=== PATIENT | male | born 1970 | race Caucasian/White ===

== ENCOUNTER 2019-03-03 08:05 | Day surgery (SDC) | payer OTHER ==
[~2019-03-03] VITALS: Ht 180.3 cm; Wt 101.2 kg
[~2019-03-03 08:05] MED LIST: ASPI-630 PO; ATOR10TA PO; BUPIVACAINE MPF 0.5% 30 ML VIAL. ONE; DEXAMETHASONE SOD PHOS 20 MG/5 ML VIAL. ONE; FAMOTIDINE 20 MG/2 ML VIAL ONE; HYDROmorphone 2 MG/ML VIAL IV PRN; IBUP200T44 PO; IV RINGERS,LACTATED 1000ML 1,000 ML IV SCH; LIDOCAINE 1% PF 2 ML VIAL. ID PRN; LIDOCAINE 2% PF 5 ML VIAL. ONE; LISI10TA2 PO; METF10007 PO; MORPHINE SULFATE 2 MG/ML VIAL. IV PRN; ONDANSETRON PF 4 MG/2 ML VIAL. IV PRN; ONDANSETRON PF 4 MG/2 ML VIAL. ONE; PROCHLORPERAZINE 10 MG/2 ML VIAL. IV PRN; PROPOFOL 20 ML IV ONE; ceFAZolin 2GM PREMIX 2 GM/50 ML BAG IV ONE; fentaNYL PF VIAL 100 MCG/2 ML VIAL IV PRN
[2019-03-03] MEDS ORDERED: fentaNYL PF VIAL 100 MCG/2 ML VIAL ONE (08:10)
[2019-03-03] MEDS ORDERED: SEVOFLURANE 16 TO 30 MINUTES. IH ONE (09:51)
[2019-03-03] MEDS ORDERED: KETOROLAC 30 MG/ML INJ FOR OR. INJ ONE (10:24)
[2019-03-03] MEDS ORDERED: HYDR-3165 PO (10:53)
--- NOTE | 2019-03-03 10:55 | DISCH ---
DISCHARGE INSTRUCTIONS Condition on Discharge Condition on Discharge: Stable Activity After Discharge Activity Instructions for Disc: Activity as tolerated (slow advance to activity as symptomatically tolerated) Weight Bearing Status after Di: As tolerated Diet after Discharge Diet after Discharge: Diabetic No Calorie Level Wound Incision Care Wound/Incision Care: Change dressing (remove dressing in 2 days may then shower no soaking until sutures removed) Contacting the after DC Call your doctor for: Concerns you may have Follow-Up Follow up with: Dr. Bess 1 week COTY BESS MD Mar 03, 2019 10:55
[2019-03-03 11:23] VITALS: BP 137/79
[2019-03-03] MEDS ORDERED: HYDROcodone/APAP 7.5/325MG 1 TAB TABLET PO ONE (11:30)
--- NOTE | 2019-03-04 10:27 | PDOC4 ---
Operative Note Operative Note Date of surgery: 03/04/2019 Preoperative diagnosis: Left medial meniscus tear Postoperative diagnosis: Same with displaceable tear posterior horn medial meniscus Operative procedure: Left knee arthroscopy partial medial meniscectomy Surgeon: Shahriar Anesthesia: Gen. Estimated blood loss: 5 mL Competitions: None Operative indications: Please see my preoperative clinic note for detailed operative indications and note that he had a symptomatic medial meniscus tear I had gone over MRI results with him clinical examination was consistent with that we talked about operative and nonoperative management and the rationale for possible operative treatment and partial medial meniscectomy based on his o ngoing symptoms blood supply to the meniscus and other medical mechanical factors. All his questions were answered he wishes to proceed with surgical evaluation and treatment and understands there is a possibility of infection ongoing pain nerve or blood vessel damage medical or other anesthetic complications among others and specifically that I cannot undo any degenerative changes present in the knee. Operative text: Patient was identified procedure verified patient placed in the supine position on the operating table. After adequate amounts of general endotracheal anesthesia were administered the left lower extremity was wrapped and draped in standard sterile fashion with a thigh tourniquet. After timeout was performed patient procedure identified and verified the left lower extremity was exsanguinated by Esmarch bandage tourniquet inflated to 300 mmHg a lateral portal was made in standard fashion a medial portal established using spinal needle localization and the knee joint was systematically examined. He had some grade 3 chondromalacia central facet of the patella no maltracking abnormalities no loose bodies noted in the gutters or suprapatellar pouch no trochlear cartilage defects ACL was probed and found to be intact he did have a displaceable tear posterior horn of the medial meniscus which was trimmed back to stable tissue and radiused appropriately. Any cartilage fragments evacuated with arthroscopic shaver. Lateral meniscus was probed and found to be intact and overall there was minimal chondromalacia in the medial or lateral compartment. Knee was then drained of arthroscopic fluid portals closed with nylon suture fat pad and portal areas were injected with half percent plain Marcaine sterile dressings were applied toes were noted be warm pink following deflation of tourniquet patient was returned recovery room in stable condition having tolerated procedure well COTY WEAVER MD Mar 04, 2019 10:27
== END 2019-03-03 11:55 | disposition home or self-care (01) ==
LOC: SURG 08:05
PROVIDERS: ATTEND Orthopaedic Surgery
DX: S83.242A Other tear of medial meniscus, current injury, left knee, initial encounter (principal); I10 Essential (primary) hypertension; E11.9 Type 2 diabetes mellitus without complications; E78.5 Hyperlipidemia, unspecified; Z72.89 Other problems related to lifestyle; Z79.899 Other long term (current) drug therapy; Z98.890 Other specified postprocedural states; X50.1XXA Overexertion from prolonged static or awkward postures, initial encounter; Y93.9 Activity, unspecified; Y92.9 Unspecified place or not applicable
CPT/HCPCS: 29881; 82962; A7015; C1782; J0696; J1100; J1885; J2001; J2405; J2704; J3010; J3490

== ENCOUNTER → 2020-06-01 | Outpatient (CLI) | payer OTHER ==
[~2020-06-01] MED LIST changes: +0.9 % SODIUM CHLORIDE 10 ML DISP.SYRIN. ID ONE; -BUPIVACAINE MPF 0.5% 30 ML VIAL. ONE; -DEXAMETHASONE SOD PHOS 20 MG/5 ML VIAL. ONE; -FAMOTIDINE 20 MG/2 ML VIAL ONE; +GADOTERATE 5 MMOL/10ML VIAL. INT ART ONE; +HYDR-3165 PO; -HYDROmorphone 2 MG/ML VIAL IV PRN; +IOHEXOL 300 MG/ML 50 ML VIAL. INT ART ONE; -IV RINGERS,LACTATED 1000ML 1,000 ML IV SCH; +LIDOCAINE 1% Multi-Dose 20 ML VIAL. ID ONE; -LIDOCAINE 1% PF 2 ML VIAL. ID PRN; -LIDOCAINE 2% PF 5 ML VIAL. ONE; -MORPHINE SULFATE 2 MG/ML VIAL. IV PRN; -ONDANSETRON PF 4 MG/2 ML VIAL. IV PRN; -ONDANSETRON PF 4 MG/2 ML VIAL. ONE; -PROCHLORPERAZINE 10 MG/2 ML VIAL. IV PRN; -PROPOFOL 20 ML IV ONE; -ceFAZolin 2GM PREMIX 2 GM/50 ML BAG IV ONE; -fentaNYL PF VIAL 100 MCG/2 ML VIAL IV PRN
--- NOTE | 2020-06-01 10:34 | KCIC ---
CERVICAL SPINE WO CONTRAST History:Reason: CERVICAL RADICULOPATHY / Spl. Instructions: / History: RUE pain and numbness x one yr. NKI. Technique: Multiplanar, multi sequential noncontrast MR imaging was performed of the cervical spine. Comparison: None Findings: Normal vertebral body height and alignment. No fracture. No pathologic signal abnormality within the cervical spinal cord. C2-C3: No canal or neuroforaminal narrowing. C3-C4: No canal or neuroforaminal narrowing. C4-C5: Small disc bulge. Partial effacement of ventral CSF space. Minimal cord flattening. Dorsal CSF spaces preserved. Minimal canal narrowing. Uncovertebral and facet arthropathy. Mild right neuroforaminal narrowing. No left neuroforaminal narrowing. C5-C6: Posterior disc osteophyte complex with slight disc extrusion extending inferiorly. Partial effacement of ventral CSF space. Mild cord flattening with abutment of the ventral cord. Mild canal narrowing. Facet arthropathy. No neuroforaminal narrowing. C6-C7: Minimal disc bulge. No canal narrowing. No neuroforaminal narrowing. Mild facet arthropathy. C7-T1: No canal or neuroforaminal narrowing. Mild facet arthropathy. Impression: 1. Multilevel cervical spondylosis most prominent C4-C5 and C5-C6. 2. C5-C6 mild canal narrowing with cord abutment and mild flattening. Electronically signed by: Shakir Goodrich DO (06/01/2020 10:32 AM) [id number]
--- NOTE | 2020-06-01 10:36 | KCIC ---
SHOULDER ARTHROGRAM RIGHT History: Reason: Tear Right glenoid, shoulder pain. PROCEDURE: The risks, alternatives, benefits of the procedure discussed with the patient. Written informed consent is obtained. A timeout is performed. Skin site was chosen under fluoroscopy. This area is prepped and draped in normal sterile fashion. 1% Lidocaine is used for superficial and deep local anesthesia. Using intermittent fluoroscopy, a 22-gauge spinal needle is advanced into the joint space. Then a dilute gadolinium solution is instilled, total volume approximately 12 mL. The needle was removed. Hemostasis is achieved. The patient tolerated the procedure well. There is no immediate complication. Patient was transferred to MRI. Total fluoroscopy time 20 seconds. 1 fluoroscopic spot images. IMPRESSION: 1. Fluoroscopically guided right shoulder arthrogram prior to MRI. Electronically signed by: Shakir Goodrich DO (06/01/2020 10:33 AM) [id number]
--- NOTE | 2020-06-01 12:11 | KCIC ---
EXAM: MR arthrogram right shoulder DATE: 06/01/2020 9:30 AM COMPARISON: 05/25/2020, shoulder radiographs. INDICATION: Right shoulder pain, tightness, weakness, evaluate for labral tear. TECHNIQUE: Multiplanar, multisequence MRI of the right shoulder was performed following the administration of intra-articular gadolinium contrast. Please see separate procedure report for full injection details. FINDINGS: Iatrogenic distention of the right glenohumeral joint with gadolinium contrast. No significant synovial nodularity or synovial thickening/synovitis. Trace subacromial-subdeltoid bursal edema, without gadolinium characteristics, bursitis. AC joint is congruent although degenerative changes are seen. No os acromiale. Type II acromion. Mild lateral downsloping of the distal acromion. No rotator cuff tear is seen. Mild increased signal within the distal supraspinatus and infraspinatus tendon consistent with tendinosis. Rotator cuff cuff muscle signal and bulk is normal without fatty atrophy. Extra-articular long head biceps tendon is normal in signal and morphology. Intra-articular long head biceps tendon is intact. No discrete labral tear is identified. Mildly prominent sublabral recess is seen at the 12:00 position. Articular cartilage is preserved. No fracture or osteonecrosis. IMPRESSION: 1. Intact rotator cuff although mild supraspinatus and infraspinatus tendinosis. 2. No discrete labral tear is seen. 3. AC joint degenerative changes are seen. Trace subacromial-subdeltoid bursal edema without gadolinium characteristics likely represents bursitis. Electronically signed by: Asad Mckeon MD (06/01/2020 12:08 PM) APOORVA
== END | disposition home or self-care (01) ==
LOC: KCIC 07:57
PROVIDERS: ATTEND Orthopaedic Surgery
DX: M47.22 Other spondylosis with radiculopathy, cervical region (principal); S43.401A Unspecified sprain of right shoulder joint, initial encounter; M48.02 Spinal stenosis, cervical region; M25.78 Osteophyte, vertebrae; M25.511 Pain in right shoulder; E78.00 Pure hypercholesterolemia, unspecified; I10 Essential (primary) hypertension; E11.9 Type 2 diabetes mellitus without complications; Z79.82 Long term (current) use of aspirin; Z79.84 Long term (current) use of oral hypoglycemic drugs; Z79.899 Other long term (current) drug therapy; Z98.890 Other specified postprocedural states; Z72.89 Other problems related to lifestyle; X58.XXXA Exposure to other specified factors, initial encounter; Y93.89 Activity, other specified; Y92.89 Other specified places as the place of occurrence of the external cause; Y99.8 Other external cause status
CPT/HCPCS: 23350; 72141; 73222; 77002; A9575; J3490; Q9967; 73040

== ENCOUNTER → 2020-07-26 | Outpatient (CLI) | payer OTHER ==
[~2020-07-26] MED LIST changes: -0.9 % SODIUM CHLORIDE 10 ML DISP.SYRIN. ID ONE; -GADOTERATE 5 MMOL/10ML VIAL. INT ART ONE; +IOHEXOL 180 MG/ML 10 ML VIAL. ONE; -IOHEXOL 300 MG/ML 50 ML VIAL. INT ART ONE; -LIDOCAINE 1% Multi-Dose 20 ML VIAL. ID ONE; +methylPREDNISolone ACETATE 40 MG/ML VIAL. ONE; +methylPREDNISolone ACETATE 80 MG/ML VIAL. ONE
--- NOTE | 2020-07-26 14:04 | PDOC ---
Progress Note - Pain Clinic Date of Service: DOS: DATE: 07/26/20 TIME: 13:57 Diagnosis: Dx: Cervical radiculopathy with cervical degenerative disc disease History or Present Illness: HPI: 49-year-old male returns follow-up status post initial evaluation preauthorization for cervical epidural steroid injection. Patient is obtained that now would like to proceed. She reports still significant pain base the neck especially right shoulder compared to left but present bilaterally patient ports no new motor or sensory deficits still worse with walking standing reaching lifting weights repetitive motions with the upper extremities wakes him sleep about once every 7-8 hours patient reports he can usually reposition and apply heat or get out of bed and then get back to sleep. Patient reports his pain is a 5 on a scale 10 is worse over the past week 3 on average to its least and is a 3 today. Patient scribes as dull tight shooting tingling as well in the base the neck and shoulders again worse on the right than the left rating of the upper extremities without significant change. Physical Exam: VS: Blood pressure is 131/90 pulse 90 respirations 16 temperature 99.4 F height is 5 feet 11 inches, weight is 215 pounds PE: PHYSICAL EXAMINATION: GENERAL: The patient is awake, alert, oriented, appropriate, very pleasant demeanor HEENT: Shows normocephalic, atraumatic. Extraocular movements are intact and symmetrical. NECK: Shows anterior throat supple without palpable lymphadenopathy noted. Swallow reflex symmetrical. CHEST: Shows normal on inspection. Breath sounds are clear bilaterally. HEART: Shows S1, S2 clear. No murmurs auscultated. ABDOMEN: Soft, nontender, nondistended, obese. No palpable organomegaly is noted. No rebound or guarding demonstrated. BACK: Shows spine grossly in the midline. Normal-appearing cervical lordotic curvature. Cervical paraspinous muscles show symmetrical on inspection, on palpation shows some moderate tenderness diffusely in the inferior aspect of the paraspinous musculature bilaterally but without specific radiation without atrophy hypertrophy also some tenderness into the bilateral superior medial trapezius more on the right than the left without radiation or trigger points. There is slightly increased thoracic kyphosis, some minor flattening of the lumbar lordotic curvature. EXTREMITIES: Upper extremities show deep tendon reflexes 2+ in the biceps and triceps tendons. 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 Peripheral pulses are 2+ radial. No peripheral edema is noted bilaterally. Upper extremities are warm and dry to touch, equal in color and appearance. SKIN: Shows warm and dry, good turgor. No edema. No sores, rashes or bruising throughout. Procedure: Procedure: Options were discussed with the patient. Patient's old chart was reviewed his his current medication regimen updated current review of systems updated today as well. We will proceed with a cervical epidural steroid injection today with fluoroscopic guidance. Risks were discussed including but not limited to: Bleeding, infection, possibility of epidural hematoma and subsequent neurological compromise, dural puncture, headaches, spinal cord and/or nerve damage, side effects of steroid medication, and poor results regarding pain control. Patient understands wished to proceed. Patient will return to the clinic in approximate 2 weeks for follow-up, was counseled as to return appointment, activity level, and side effects to be aware of. Medication Injected: Med Injected: Procedure cervical epidural steroid injection at the C6-7 level, using local anesthetic under sterile prep and drape using C-arm fluoroscopic guidance under local anesthesia medications injected ; 120 mg Depo-Medrol + 5 mL normal saline and 2 mL contrast; condition at discharge is stable patient tolerated procedure well. and had no complications Condition at Discharge: Condition at Discharge: Condition at discharge is stable, patient tolerated the procedure well and had no complications. ENMA AGUILERA MD Jul 26, 2020 14:04
== END | disposition home or self-care (01) ==
LOC: PNCL 13:21
PROVIDERS: ATTEND Anesthesiology
DX: M50.123 Cervical disc disorder at C6-C7 level with radiculopathy (principal); Z98.890 Other specified postprocedural states
CPT/HCPCS: 62321; J1030; J1040; Q9965

== ENCOUNTER → 2020-08-09 | Outpatient (CLI) | payer OTHER ==
--- NOTE | 2020-08-09 14:15 | PDOC ---
Progress Note - Pain Clinic Date of Service: DOS: DATE: 08/09/20 TIME: 14:11 Diagnosis: Dx: Cervical radiculopathy with cervical degenerative disc disease History or Present Illness: HPI: 49-year-old male returns for follow-up status post cervical epidural steroid action x1. Patient reports about 60% improvement after the first injection now down to about 25% as we are waiting for preauthorization with insurance provider which she has obtained now would like to proceed with a second injection. Patient ports pain base the neck and shoulders bilaterally and somewhat worse on the right than the left but present bilaterally with radiating pain into the shoulders and arms occasionally patient reports a 3 on scale 10 is worse over the past week 2 on average to its least is a 2 today. Patient reports worse with rotation of motion looking over his shoulder reaching or any repetitive motions with the upper extremities but otherwise doing fairly well and sleeping much better at night about 75% improvement in ability to sleep. Patient reports no new motor or sensory deficits or other complaints describes pain as aching and dull tight in the base the neck with some tingling pain in the shoulders and arms that can radiate at times. Physical Exam: VS: Blood pressure is 23/83 pulse 111 respirations 18 temperature 98.7 F height is 5 feet 11 inches weight is 213 pounds PE: PHYSICAL EXAMINATION: GENERAL: The patient is awake, alert, oriented, appropriate, very pleasant demeanor HEENT: Shows normocephalic, atraumatic. Extraocular movements are intact and symmetrical. NECK: Shows anterior throat supple without palpable lymphadenopathy noted. CHEST: Shows normal on inspection. Breath sounds are clear bilaterally. HEART: Shows S1, S2 clear. No murmurs auscultated. ABDOMEN: Soft, nontender, nondistended, obese. No palpable organomegaly is noted. BACK: Shows spine grossly in the midline. Normal-appearing cervical lordotic curvature. Cervical paraspinous muscles show symmetrical on inspection, on palpation shows some moderate tenderness diffusely in the inferior aspect of the cervical paraspinous muscles right and left but without asymmetry without atrophy hypertrophy without trigger points. No radiation is demonstrated with palpation. Patient shows good rotation motion cervical spine both laterally as well as extension flexion without significant limitation of only mild pain with extension. There is slightly increased thoracic kyphosis, some minor flattening of the lumbar lordotic curvature. EXTREMITIES: Upper extremities show deep tendon reflexes 2+ in the biceps and triceps tendons. Motor exam is 4 on a scale of 5 with right rib strength, biceps and triceps flexion and 5/5 on the left. Peripheral pulses are 2+ radial. No peripheral edema is noted bilaterally. Upper extremities are warm and dry to touch, equal in color and appearance. SKIN: Shows warm and dry, good turgor. No edema. No sores, rashes or bruising throughout. Procedure: Procedure: Options were discussed with the patient. Patient chart reviewed his current medication regimen updated current review of systems updated today as well. We will proceed with a second in the series cervical epidural steroid injection today with fluoroscopic guidance. Risks were discussed including but not limited to: Bleeding, infection, possibility of epidural hematoma and subsequent neurological compromise, dural puncture, headaches, spinal cord and/or nerve damage, side effects of steroid medication, and poor results regarding pain control. Patient understands wished to proceed. Patient will return to clinic in approximate 2 weeks for follow-up, was counseled as to return appointment activity level and side effects to be aware of. Medication Injected: Med Injected: Procedure cervical epidural steroid injection at the C6-7 level, using local anesthetic under sterile prep and drape using C-arm fluoroscopic guidance under local anesthesia medications injected ; 120 mg Depo-Medrol + 5 mL normal saline and 2 mL contrast; condition at discharge is stable patient tolerated procedure well. and had no complications Condition at Discharge: Condition at Discharge: Condition at discharge stable, patient tolerated procedure well and had no complications. ENMA AGUILERA MD Aug 09, 2020 14:15
== END | disposition home or self-care (01) ==
LOC: PNCL 13:25
PROVIDERS: ATTEND Anesthesiology
DX: M50.10 Cervical disc disorder with radiculopathy, unspecified cervical region (principal); I10 Essential (primary) hypertension; E78.00 Pure hypercholesterolemia, unspecified; E11.9 Type 2 diabetes mellitus without complications; Z79.82 Long term (current) use of aspirin; Z79.84 Long term (current) use of oral hypoglycemic drugs; Z79.899 Other long term (current) drug therapy; Z98.890 Other specified postprocedural states; Z72.89 Other problems related to lifestyle; Z87.891 Personal history of nicotine dependence
CPT/HCPCS: 62321; J1030; J1040; Q9965

== ENCOUNTER → 2020-08-30 | Outpatient (CLI) | payer OTHER ==
[~2020-08-30] MED LIST changes: +LISI10TA16 PO; -LISI10TA2 PO
--- NOTE | 2020-08-30 11:57 | PDOC ---
Progress Note - Pain Clinic Date of Service: DOS: DATE: 08/30/20 TIME: 11:54 Diagnosis: Dx: Cervical radiculopathy with cervical degenerative disc disease History or Present Illness: HPI: 49-year-old male returns follow-up status post cervical epidurals or injection x2. Patient reports about 50% improvement overall still pain the base the neck and right and left shoulders and upper extremities but much improved patient reports he is sleeping better at night generally is not awakening from sleep most nights still can occasionally but very rare patient reports the pain is much better describes as aching and tight in the base the neck and tingling in the shoulders and arms but less so in the upper extremities than it was previously. Patient reports a 3 on scale 10 is worse over the past week 2 on average to its least is a 2 today. Patient reports he can increase his activities greater ease and comfort doing work activities household activities woodworking doing computer work with much greater ease and comfort with all these activities. Patient reports no new motor or sensory deficits no new bowel or bladder incontinence or other complaints. Physical Exam: VS: Pressure is 120/85 pulse 90 respirations 18 temperature 97.9 F weight is 207 pounds PE: PHYSICAL EXAMINATION: GENERAL: The patient is awake, alert, oriented, appropriate, very pleasant dem eanor HEENT: Shows normocephalic, atraumatic. Extraocular movements are intact and symmetrical. Oral cavity: Mucous membranes moist and pink. NECK: Shows anterior throat supple without palpable lymphadenopathy noted. Swallow reflex symmetrical. CHEST: Shows normal on inspection. Breath sounds are clear bilaterally. HEART: Shows S1, S2 clear. No murmurs auscultated. ABDOMEN: Soft, nontender, nondistended. No palpable organomegaly is noted. BACK: Shows spine grossly in the midline. Normal-appearing cervical lordotic curvature. Cervical paraspinous muscles show symmetrical with inspection on palpation some mild tenderness diffusely in the inferior aspect of the paraspinous musculature but symmetrical without evidence of atrophy hypertrophy no trigger points no asymmetry patient shows good rotation motion cervical spine both laterally as well as extension and flexion without significant increase in pain. There is slightly increased thoracic kyphosis, some minor flattening of the lumbar lordotic curvature. EXTREMITIES: Upper extremities show deep tendon reflexes 2+ in the biceps and triceps tendons. 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 Peripheral pulses are 2+ radial. No peripheral edema is noted bilaterally. Upper extremities are warm and dry to touch, equal in color and appearance. SKIN: Shows warm and dry, good turgor. No edema. No sores, rashes or bruising throughout. Procedure: Procedure: Options were discussed with the patient. Patient's old chart reviewed his current medication regimen updated current review of systems updated today as well. We will proceed with a third in the series cervical epidural steroid traction today with fluoroscopic guidance. Risks were discussed including but not limited to: Bleeding, infection, possibility of epidural hematoma and subsequent neurological compromise, dural puncture, headaches, spinal cord and/or nerve damage, side effects of steroid medication, and poor results regarding pain control. Patient understands and wished to proceed. Patient will return to clinic in approximate 2 weeks for follow-up, was counseled as to return appointment activity level and side effects to be aware of. Medication Injected: Med Injected: Procedure cervical epidural steroid injection at the C6-7 level, using local anesthetic under sterile prep and drape using C-arm fluoroscopic guidance under local anesthesia medications injected ; 120 mg Depo-Medrol + 5 mL normal saline and 2 mL contrast; condition at discharge is stable patient tolerated procedure well. and had no complications Condition at Discharge: Condition at Discharge: Condition at discharge stable, patient tolerated procedure well had no complications. ENMA AGUILERA MD Aug 30, 2020 11:57
--- NOTE | 2020-08-30 11:58 | PDOC4 ---
PROCEDURE Procedure Patient was consented for cervical epidural steroid injection. Risks were d iscussed including but not limited to: Bleeding, infection, possibility of epidural hematoma and subsequent neurological compromise, dural puncture, headaches, spinal cord and/or nerve damage, side effects of steroid medication, and poor results regarding pain control. Patient understands and wished to proceed. Procedure cervical epidural steroid injection at the C6-7 level, using local anesthetic under sterile prep and drape using C-arm fluoroscopic guidance under local anesthesia medications injected ; 120 mg Depo-Medrol + 5 mL normal saline and 2 mL contrast; condition at discharge is stable patient tolerated procedure well. and had no complications ENMA AGUILERA MD Aug 30, 2020 11:58
== END | disposition home or self-care (01) ==
LOC: PNCL 11:53
PROVIDERS: ATTEND Anesthesiology
DX: M50.123 Cervical disc disorder at C6-C7 level with radiculopathy (principal); Z98.890 Other specified postprocedural states
CPT/HCPCS: 62321; J1030; J1040; Q9965